=== PATIENT | male | born 1960 | race Caucasian/White ===

== ENCOUNTER 2020-07-04 15:41 | Inpatient (IN) | payer OTHER ==
[~2020-07-04] VITALS: Ht 177.8 cm; Wt 102.1 kg
[~2020-07-04 15:41] MED LIST: ASPIR 8181 M1 PO; BUPR150ER PO; BUPROPION XL150 M1 PO; L-METHYLFOLATE15 MG PO; METHYLFOLATE PO; TELM80 PO; XARELTO15 MG; XARELTO20 MG PO; [UNRECOGNIZED DRUG - OTHER] PO; [UNRECOGNIZED DRUG - OTHER] PO
[2020-07-04 16:09] LABS: BASOPHILS ABSOLUTE AUTO 0.04 K/mm3 (0.00-0.23); BASOPHILS PERCENT AUTO 1 % (0-2); EOSINOPHILS ABSOLUTE AUTO 0.19 K/mm3 (0.00-0.68); EOSINOPHILS PERCENT AUTO 3 % (0-6); Hematocrit 25.4 % (37.0-53.0); Hemoglobin 7.9 g/dL (13.5-17.5); IMMATURE GRAN ABSOLUTE AUTO 0.03 K/mm3 (0.00-0.10); IMMATURE GRAN PERCENT AUTO 1 % (0-1); LYMPHOCYTES ABSOLUTE AUTO 2.14 K/mm3 (0.84-5.20); LYMPHOCYTES PERCENT AUTO 35 % (21-46); MONOCYTES ABSOLUTE AUTO 0.48 K/mm3 (0.16-1.47); MONOCYTES PERCENT AUTO 8 % (4-13); Mean Corpuscular HGB 26.7 pg (26.0-34.0); Mean Corpuscular HGB Conc 31.1 g/dL (31.5-36.5); Mean Corpuscular Volume 86 fL (80-100); Mean Platelet Volume 9.5 fL (9.1-12.4); NEUTROPHILS ABSOLUTE AUTO 3.27 K/mm3 (1.96-9.15); NEUTROPHILS PERCENT AUTO 53 % (41-73); Platelet Count 451 K/mm3 (150-400); RDW Coefficient Variation 15.1 % (11.7-14.2); RDW Standard Deviation 47.3 fL (35.1-46.3); Red Blood Cell Count 2.96 M/mm3 (4.30-5.90); White Blood Cell Count 6.15 K/mm3 (4.00-11.30)
[2020-07-04 16:29] LABS: Albumin, Blood 3.3 g/dL (3.4-5.0); Bilirubin, Total 0.3 mg/dL (0.1-1.0); Bun/Creatinine Ratio 11.9 (12.0-20.0); Calcium, Blood 8.4 mg/dL (8.5-10.1); Creatinine, Blood 1.51 mg/dL (0.60-1.20); Globulin, Blood 3.3 g/dL (2.2-4.0); Potassium, Blood 4.2 mmol/L (3.5-5.5); Total Protein, Blood 6.6 g/dL (6.4-8.2)
[2020-07-04] MEDS ORDERED: ALBU90OI INH (19:16)
[2020-07-04] MEDS ORDERED: VITAMIN D325 MC3 PO (21:08)
--- NOTE | 2020-07-04 23:17 | NUR ---
BLOOD PRESSURE 2310 BP DECREASED, MAP @ 65, PT LAYING DOWN RESTING DURING THIS SET OF VITALS, ALL PRIOR VITAL WERE IN SITTING POSITION. PT REPORTS FEELING "FINE" STILL, DENIES SOB/DIZZINESS/LIGHTHEADEDNESS, WILL CONTINUE TO MONITOR
[2020-07-05 00:33] LABS: Hematocrit 24.4 % (37.0-53.0); Hemoglobin 7.7 g/dL (13.5-17.5)
[2020-07-05 04:52] LABS: BASOPHILS ABSOLUTE AUTO 0.03 K/mm3 (0.00-0.23); BASOPHILS PERCENT AUTO 1 % (0-2); EOSINOPHILS ABSOLUTE AUTO 0.24 K/mm3 (0.00-0.68); EOSINOPHILS PERCENT AUTO 5 % (0-6); Hematocrit 24.5 % (37.0-53.0); Hemoglobin 7.5 g/dL (13.5-17.5); IMMATURE GRAN ABSOLUTE AUTO 0.02 K/mm3 (0.00-0.10); IMMATURE GRAN PERCENT AUTO 0 % (0-1); LYMPHOCYTES ABSOLUTE AUTO 1.79 K/mm3 (0.84-5.20); LYMPHOCYTES PERCENT AUTO 37 % (21-46); MONOCYTES ABSOLUTE AUTO 0.46 K/mm3 (0.16-1.47); MONOCYTES PERCENT AUTO 10 % (4-13); Mean Corpuscular HGB 26.4 pg (26.0-34.0); Mean Corpuscular HGB Conc 30.6 g/dL (31.5-36.5); Mean Corpuscular Volume 86 fL (80-100); Mean Platelet Volume 9.7 fL (9.1-12.4); NEUTROPHILS ABSOLUTE AUTO 2.31 K/mm3 (1.96-9.15); NEUTROPHILS PERCENT AUTO 48 % (41-73); Platelet Count 329 K/mm3 (150-400); RDW Coefficient Variation 14.6 % (11.7-14.2); RDW Standard Deviation 46.4 fL (35.1-46.3); Red Blood Cell Count 2.84 M/mm3 (4.30-5.90); White Blood Cell Count 4.85 K/mm3 (4.00-11.30)
[2020-07-05 05:13] LABS: Albumin, Blood 2.7 g/dL (3.4-5.0); Bilirubin, Total 0.3 mg/dL (0.1-1.0); Bun/Creatinine Ratio 12.8 (12.0-20.0); Calcium, Blood 7.9 mg/dL (8.5-10.1); Creatinine, Blood 1.48 mg/dL (0.60-1.20); Globulin, Blood 2.7 g/dL (2.2-4.0); Total Protein, Blood 5.4 g/dL (6.4-8.2)
--- NOTE | 2020-07-05 06:19 | NUR ---
SHIFT SUMMARY S/P NEAR SYNCOPAL EPISODES W/ DECREASED HGB, 1 UNIT PRBC TRANSFUSED, A/O X4, VSS, TOLERATED PO BUT NPO SINCE MIDNIGHT, DENIES PAIN, CAN BE INDEPENDENT BUT STAFF IS SBA INCASE SYNCOPAL EPISODE SETS IN. NO ACUTE EVENTS THIS SHIFT. CALL LIGHT IN REACH, WILL CONTINUE TO MONITOR AND REPORT TO ONCOMING DAY RN.
--- NOTE | 2020-07-05 16:15 | NUR ---
SHIFT SUMMARY PT A/O X4; PLEASANT AND COOPERATIVE WITH CARE. S/P FOR NEAR SYNCOPAL EPISODES, BUT HAS NOT HAD ANY SYMPTOMS THIS SHIFT. REPORTS BRIGHT RED BLOOD DO TO HEMORRHOIDS WHEN HE HAS A BOWEL MOVEMENT. THE PT REPORTS THAT THIS IS NORMAL FOR HIM. NO C/O ABD PAIN. PT NPO AFTER MIDNIGHT FOR POSSIBLE PROCEDURE. NEGATIVE FOR ORTHOSTATIC BP'S. VSS. PT RESTING COMFORTABLY IN BED WITH HIS CALL LIGHT IN REACH. ABLE TO MAKE HIS NEEDS KNOWN.
[2020-07-05 21:30] LABS: Hematocrit 27.1 % (37.0-53.0); Hemoglobin 8.5 g/dL (13.5-17.5)
[2020-07-05 22:45] LABS: SARS-Cov-2 (COVID-19) PCR, MMC NEGATIVE (NEGATIVE)
--- NOTE | 2020-07-06 04:39 | NUR ---
SHIFT SUMMARY S/P NEAR SYNCOPAL EPISODE, A/O X4, VSS, TOLERATING PO PRIOR TO GOING NPO, H&H STILL LOW BUT APPEARS TO BE INCREASING (PER LAB), DENIES PAIN OTHER THAN A HEADACHE, REPORTS HAVING A HIGH CAFFIENE INTAKE WHICH HAS BEEN LOW SINCE ADMIT, NO ACUTE EVENTS THIS SHIFT. CALL LIGHT IN REACH, WILL CONTINUE TO MONITOR AND REPORT TO ONCOMING DAY RN.
[2020-07-06 05:11] LABS: Hematocrit 24.6 % (37.0-53.0); Hemoglobin 7.6 g/dL (13.5-17.5)
--- NOTE | 2020-07-06 09:24 | NUR ---
PT TO OR AT THIS TIME
--- NOTE | 2020-07-06 10:15 | NUR ---
History, Chart, Medications and Allergies reviewed before start of procedure. Lungs clear T/O to Auscultation. Patient confirms NPO status and agrees with scheduled surgery. Pre-Op teaching done. Pt verbalizes understanding.
--- NOTE | 2020-07-06 13:33 | NUR ---
POST OP: REPORT RECEIVED FROM EVELYNE GAS ENGINE MECHANIC. PT TO UNIT AT 1145. ABLE TO WALK FROM [place] TO BED. A/O, VSS.SCANT BLEED AT RECTUM. PT REPORTS PAIN AT RECTUM, MEDICATIONS GIVEN. WILL CTM.
[2020-07-06 13:44] LABS: Hematocrit 26.2 % (37.0-53.0); Hemoglobin 8.1 g/dL (13.5-17.5)
[2020-07-06] MEDS ORDERED: OXYACE7.5T PO (16:22)
[2020-07-06] MEDS ORDERED: DOCU100 PO (16:23)
[2020-07-06] MEDS ORDERED: MIRALAX17 GM PO (16:24)
[2020-07-06] MEDS ORDERED: Adult Glycerin1 EACH PR (16:25)
--- NOTE | 2020-07-06 16:47 | NUR ---
DISCHARGE: PACKET PRINTED AND PT EDUCATED. IV DC'D WNL. PT LEFT UNIT VIA WHEELCHAIR WITH SUPERVISOR PRE[employer], ELIDIA AND AT ABOUT 1645
== END 2020-07-06 16:48 | disposition home or self-care (01) | DRG 348 ==
LOC: ER 15:41 → ERHOLD 15:42 → SURS 15:42
PROVIDERS: Emergency Medicine; Surgery; ADMIT Internal Medicine
PROC: 30233N1 Transfusion of Nonautologous Red Blood Cells into Peripheral Vein, Percutaneous Approach (ICD-10-PCS; 2020-07-06)
PROC: 06BY0ZC Excision of Hemorrhoidal Plexus, Open Approach (ICD-10-PCS; principal; 2020-07-06 10:00)
DX: K64.8 Other hemorrhoids (principal); D62 Acute posthemorrhagic anemia; I12.9 Hypertensive chronic kidney disease with stage 1 through stage 4 chronic kidney disease, or unspecified chronic kidney disease; N18.30 Chronic kidney disease, stage 3 unspecified; F32.9 Major depressive disorder, single episode, unspecified; E78.00 Pure hypercholesterolemia, unspecified; Z86.711 Personal history of pulmonary embolism; Z88.5 Allergy status to narcotic agent; Z79.01 Long term (current) use of anticoagulants; Z98.890 Other specified postprocedural states; Z86.010 Personal history of colon polyps
CPT/HCPCS: 36415; 36430; 71260; 80053; 84484; 85014; 85018; 85025; 86850; 86900; 86901; 86923; 88304; 93005; 93010; 99285-25; A9270; G0378; J2250; J2405; J2704; J3010; J7030; J7120; P9016; Q9967; U0004